=== PATIENT | female | born 1985 | race Caucasian/White ===

== ENCOUNTER 2021-01-13 06:34 | Emergency (ER) | payer OTHER, SELFPAY ==
[2021-01-13 06:34] VITALS: BP 152/103; PULSE 110; RESP 18; TEMP 37.2; O2SAT 98
[2021-01-13 06:47] VITALS: BP 139/81; PULSE 101; RESP 18; O2SAT 97
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
[2021-01-13] MEDS: SODIUM CHLORIDE 0.9% IV 1,000 ML 999 ML IV CONT (08:35)
--- NOTE | 2021-01-13 08:40 | PC.NURSE ---
[place] [employer] at bedside to speak with pt
--- NOTE | 2021-01-13 09:42 | PC.NURSE ---
Pt on telephone making arrangements for a care home. Breakfast tray provided, IV fluid bolus infusing
[2021-01-13 10:38] VITALS: BP 136/87; PULSE 104; RESP 20; O2SAT 96
== END 2021-01-13 10:47 | disposition home or self-care (01) ==
PROVIDERS: Emergency Provider Emergency Medicine
DX: R68.84 Jaw pain (principal); Y04.2XXA Assault by strike against or bumped into by another person, initial encounter
CPT/HCPCS: 96361; 96374; 99284; J0131; J7030